=== PATIENT | female | born 1950 | race Caucasian/White ===

== ENCOUNTER 2016-12-03 16:12 | Emergency (ER) | payer MEDICAID ==
[2016-12-03 17:39] LABS: BASOPHILS 1.6 % (0-2); EOSINOPHILS 6.6 % (0-7); HEMATOCRIT 47.3 % (36.0-48.0); IMMATURE GRANULOCYTES 0.2 % (0-5); LYMPHOCYTES 22.3 % (15-50); MCHC 33.8 g/dL (31.0-37.0); MCV 100.6 fL (80.0-100.0); MONOCYTES 11.1 % (2-11); NEUTROPHILS 58.2 % (40-80); RDW 13.8 % (11.5-14.5)
[2016-12-03 17:55] LABS: PLATELET COUNT 230 10x3/uL (130-400)
== END 2016-12-03 21:48 | disposition home or self-care (01) ==
LOC: D.ER 16:12
PROVIDERS: Emergency Medicine
DX: R04.0 Epistaxis (principal); J44.9 Chronic obstructive pulmonary disease, unspecified